=== PATIENT | female | born 1950 | race Caucasian/White ===

== ENCOUNTER → 2018-09-26 | Outpatient (CLI) | payer MEDICARE ==
[~2018-09-26] MED LIST: BACDS PO; DOC100 PO; NO ROUTINE MEDS; PER PO; PHENA200 PO; TAM4 PO; TOLT4CAP13 PO
[2018-09-26 15:17] LABS: PLATELET COUNT, AUTOMATED 304 K/uL (150-450)
--- NOTE | 2018-09-26 15:24 | RADIOLOGY IMAGING REPORT ---
FACILITY: [facility] PATIENT NAME: Aniya Aguilar : 1950 MR: [id number] V: [id number] EXAM DATE: ORDERING PHYSICIAN: ZANE GÓMEZ TECHNOLOGIST: Location: [facility] Patient: Aniya Aguilar : 1950 Visit/Account:[id number] Date of Sevice: 09/26/2018 HIPS BILATERAL Indication: b/l groin pain Comparison: None. Findings: The bones of the pelvis and proximal right left femur are intact. Sacroiliac joints are no rmal. There is moderate to severe narrowing of the left hip joint space, with subchondral cystic sharmin nge in the left femoral head. There is moderate narrowing of the right hip joint space. Soft tissue s are normal. IMPRESSION: 1. Moderate to severe osteoarthritis left hip. 2. Moderate osteoarthritis right hip. Report Dictated By: Tomy Kramer at 09/26/2018 2:56 PM Report E-Signed By: Tomy Kramer at 09/26/2018 3:16 PM WSN:[email or web address]
[2018-09-26 15:54] LABS: LDL CHOLESTEROL 96 mg/dl
== END ==
LOC: LAB 14:11
PROVIDERS: ATTEND Internal Medicine
DX: M16.0 Bilateral primary osteoarthritis of hip (principal); I10 Essential (primary) hypertension
CPT/HCPCS: 36415; 73522; 81001; 82040; 82247; 82310; 82374; 82435; 82465; 82565; 82947; 83718; 84075; 84132; 84155; 84295; 84443; 84450; 84460; 84478; 84520; 85025